=== PATIENT | male | born 1990 | race Caucasian/White ===

== ENCOUNTER 2017-11-01 05:25 | Observation (INO) ==
[2017-11-01] MEDS: *HR* HYDROmorphone (PF) 1 MG/ML SYRINGE IVP PRN ×6 (08:05→22:40)
[2017-11-01] MEDS ORDERED: Ondansetron 4 MG/2 ML VIAL IVP PRN (10:55)
[2017-11-01] MEDS ORDERED: Naloxone 0.4 MG/ML INJ IVP PRN (10:55)
[2017-11-01] MEDS: *HR* OxyCODONE/APAP 5/325 TABLET PO PRN ×3 (10:55→20:46)
--- NOTE | 2017-11-01 11:17 | Internal Med History&Physical ---
Date of Encounter: 11/01/17 Time of Encounter: 11:00 Assessment and Plan (1) Nephrolithiasis Current visit: Yes Status: Acute Patient with left hydronephrosis and stone in proximal ureter. Patient prefers conservative management if possible. - Urology consulted, appreciate assistance - IV fluids - NS at 200/hr - IV dilaudid PRN - NPO at midnight for urological intervention if indicated - KUB pending (2) Anxiety Current visit: Yes Status: Acute Patient states he takes klonopin at night because of difficulty sleeping. Unsure of dose. - Consider adding benzo if patient develops significant anxiety Internal Medicine - H&P: HPI Chief complaint: Left flank pain Admitted From: Intrahospital Transfer Plans for Post Hospital Care: Home History of present illness: Mr. Camejo is a 27 year old male with history of nephrolithiasis who presented to the ED in [place] this morning after he awoke with sudden onset left sided flank pain. He has had kidney stones in the past and recognized that the symptoms were the same. The pain was severe so he presented to the ED for evaluation. In the ED a CT was performed which showed left sided hydronephrosis with a stone in the ureter. He was given pain medications and flomax and transferred to [facility] for urologic evaluation. He states that he has had numerous kidney stones in the past but has never required surgical intervention - his last stone was four years ago. He has never had a urology evaluation. He did vomit on the way to the outside ED but has not been nauseated since. He has not had fever. Past Med Surg Social Fam HX - Past Medical History Psychiatric history: anxiety - Social History Smoking Status: Current every day smoker Alcohol use: occasionally Drug use: none Occupational status: employed - Additional Family History Additional family history: Noncontributory Internal Medicine - H&P: Meds No Known Home Drugs 11/01/17 [History] 3 Allergy/AdvReac Type Severity Reaction Status Date / Time morphine Allergy Intermediate tight chest Verified 11/01/17 08:42 All Systems PM: A 10-system review of systems was performed and is negative for pertinent findings except as documented above in the HPI. - Constitutional Vitals: Temp Pulse Resp BP Pulse Ox 98.0 F 88 16 115/79 96 11/01/17 07:12 11/01/17 07:12 11/01/17 07:12 11/01/17 07:12 11/01/17 07:12 General appearance: Present: A&O X 3, no acute distress - Head Head exam: Present: atraumatic - Eye Eye exam: Present: EOMI, sclera anicteric - ENT ENT exam: Present: mucous membranes moist - Neck Neck exam general surgery: Present: supple - Respiratory Respiratory exam: Present: CTAB - Cardiovascular Cardiovascular exam: Present: RRR. Absent: diastolic murmur, gallop, rubs, systolic murmur - GI/Abdominal GI/Abdominal exam: Present: normal bowel sounds, soft. Absent: distended, tenderness - Extremities Exam Extremities exam: Absent: pedal edema - Back Exam Back exam: Present: CVA tenderness (L) - Neurological Exam Neurological exam: Present: no focal deficits - Skin Skin exam: Absent: rash Internal Med - H&P Results - Labs Labs: Reviewed outside labs. UA with gross blood, no LE or nitrate.
--- NOTE | 2017-11-01 11:17 | Urology - Consult Note ---
Date of Encounter: 11/01/17 Time of Encounter: 11:16 - Assessment and Plan (1) Left ureteral stone Current Visit: Yes Status: Acute Assessment and plan: I spoke with the pateint about options. patient would like to see if he can pass stone. patient scheduled for tomorrow for stone extraction if fails to pass stone. Urology CN:KELLY Consult date: 11/01/17 Reason for consult Urology: Hydronephrosis Requesting physician: Allison Ramos History of present illness: Shorty is a 27-year-old male with a history of severe left-sided flank pain. Patient was found at outside hospital to have a left proximal 5 mm ureteral stone. Patient states that he has passed multiple stones in the past. No nausea or vomiting. No fevers. Medications and Allergies No Known Home Drugs 11/01/17 [History] 3 Allergy/AdvReac Type Severity Reaction Status Date / Time morphine Allergy Intermediate tight chest Verified 11/01/17 08:42 Review of Systems - Constitutional no chills - EENT Nose, mouth and throat: no dizziness - Cardiovascular no chest pain - Respiratory no cough - Gastrointestinal no abdominal pain - Musculoskeletal no back pain Exam Initial Vital Signs Temp Pulse Resp BP Pulse Ox 98.0 F 88 16 115/79 96 11/01/17 07:12 11/01/17 07:12 11/01/17 07:12 11/01/17 07:12 11/01/17 07:12 - General physical appearance Present: well developed - Respiratory Present: normal respiratory effort - Cardiovascular Cardiovascular exam IM: RRR - Abdomen Abdomen: Present: soft - Integumentary Present: no rash - Neurologic Present: normal coordination - Musculoskeletal Present: normal gait Urology Results - Labs All other labs normal. Consult Discharge Plan - Plan Referrals: NONE,PCP [Primary Care Provider] -
[2017-11-01] MEDS: 0.9 % Sodium Chloride 1,000 ML IVC SCH ×2 (11:29→17:11)
[2017-11-02] MEDS: *HR* HYDROmorphone (PF) 1 MG/ML SYRINGE IVP PRN ×5 (01:03→09:20)
[2017-11-02 04:39] LABS: Basophils % 0.3 %; Eosinophils # 0.1 K/mcL (0.0-0.6); Eosinophils % 1.5 %; Hematocrit 46.9 % (37.5-50.1); Hemoglobin 16.1 g/dL (12.9-16.9); Immature Granulocytes % 0.2 % (0-4); Lymphocytes # 3.4 K/mcL (0.6-4.6); Lymphocytes % 36.4 %; Mean Corpuscular HGB Conc 34.3 g/dL (31.6-35.5); Mean Corpuscular Hemoglobin 30.3 pg (28.0-33.3); Mean Corpuscular Volume 88.3 fL (83.0-100.0); Mean Platelet Volume 10.2 fL (9.4-12.4); Monocytes # 0.6 K/mcL (0.0-1.3); Monocytes % 5.9 %; Neutrophils # 5.2 K/mcL (1.6-8.9); Platelet Count 228 K/mcL (140-400); Red Blood Count 5.31 M/mcL (4.19-5.50); Red Cell Distribution Width 12.8 % (11.5-14.5); Segmented Neutrophils % 55.7 %
[2017-11-02 04:54] LABS: BUN/Creatinine Ratio 11 (6-26); Blood Urea Nitrogen 11 mg/dL (8-26); Calcium 9.1 mg/dL (8.6-10.8); Carbon Dioxide 28 mEq/L (19-29); Chloride 105 mEq/L (98-109); Glucose 87 mg/dL (70-99); Osmolality,Calculated 289 (280-300); Potassium 4.1 mEq/L (3.5-4.5); Sodium 140 mEq/L (136-145); eGFR For African Americans > 60 (> 60); eGFR For Non-African Americans > 60 (> 60)
[2017-11-02] MEDS: *HR* OxyCODONE/APAP 5/325 TABLET PO PRN (05:11)
--- NOTE | 2017-11-02 06:41 | Urology Progress Note ---
Date of Encounter: 11/02/17 Time of Encounter: 06:40 - Assessment and Plan (1) Left ureteral stone Current Visit: Yes Status: Acute Assessment and plan: to OR today for left ureteroscopic stone extraction Progress Note Narrative: patient seen. doing ok. still with sig left flank pain. Objective Initial Vital Signs Temp Pulse Resp BP Pulse Ox 98.0 F 88 16 115/79 96 11/01/17 07:12 11/01/17 07:12 11/01/17 07:12 11/01/17 07:12 11/01/17 07:12 - General physical appearance Present: well developed - Abdomen Present: soft - Labs 11/02/17 04:11 11/02/17 04:11 Diabetes panel 11/02/17 Range/Units 04:11 Sodium 140 (136-145) mEq/L Potassium 4.1 (3.5-4.5) mEq/L Chloride 105 (98-109) mEq/L Carbon Dioxide 28 (19-29) mEq/L BUN 11 (8-26) mg/dL Creatinine 1.02 (0.72-1.25) mg/dL Glucose 87 (70-99) mg/dL Calcium 9.1 (8.6-10.8) mg/dL Calcium panel 11/02/17 Range/Units 04:11 Calcium 9.1 (8.6-10.8) mg/dL Pituitary panel 11/02/17 Range/Units 04:11 Sodium 140 (136-145) mEq/L Potassium 4.1 (3.5-4.5) mEq/L Chloride 105 (98-109) mEq/L Carbon Dioxide 28 (19-29) mEq/L BUN 11 (8-26) mg/dL Creatinine 1.02 (0.72-1.25) mg/dL Glucose 87 (70-99) mg/dL Calcium 9.1 (8.6-10.8) mg/dL Adrenal panel 11/02/17 Range/Units 04:11 Sodium 140 (136-145) mEq/L Potassium 4.1 (3.5-4.5) mEq/L Chloride 105 (98-109) mEq/L Carbon Dioxide 28 (19-29) mEq/L BUN 11 (8-26) mg/dL Creatinine 1.02 (0.72-1.25) mg/dL Glucose 87 (70-99) mg/dL Calcium 9.1 (8.6-10.8) mg/dL Consult Discharge Plan - Plan Referrals: NONE,PCP [Primary Care Provider] -
[2017-11-02] MEDS ORDERED: Ketorolac 30 MG/ML VIAL ONE (07:18)
[2017-11-02] MEDS ORDERED: *HR* FentaNYL (PF) 100 MCG/2 ML VIAL ONE (07:18)
[2017-11-02] MEDS ORDERED: Ondansetron 4 MG/2 ML VIAL ONE (07:18)
[2017-11-02] MEDS ORDERED: *HR* Propofol 200 MG/20 ML VIAL IVP ONE (07:18)
[2017-11-02] MEDS ORDERED: Dexamethasone 4 MG/ML VIAL ONE (07:18)
[2017-11-02] MEDS ORDERED: Lidocaine -MPF 2% 2 ML VIAL ONE (07:18)
[2017-11-02] MEDS ORDERED: *HR* Midazolam HCl 2 MG/2 ML VIAL ONE (07:18)
[2017-11-02] MEDS ORDERED: Ringers Solution, Lactated 1,000 ML ONE (07:40)
--- NOTE | 2017-11-02 07:42 | Anesthesia Evaluation PreOp ---
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: Denies Any Significant HX Other Medical History: Other (Anxiety, Insomnia) Alcohol Use: occasionally Drug use: none Medications and Allergies No Known Home Drugs 11/01/17 [History] 3 Allergy/AdvReac Type Severity Reaction Status Date / Time morphine Allergy Intermediate tight chest Verified 11/01/17 08:42 - Meds/Allergy Pre-op Review Allergies Reviewed: Yes (NKA) Beta Blockers on Current Med List: No Anesthesia Results - Labs 11/02/17 04:11 11/02/17 04:11 Anesthesia Exam 128/76 73 14 97.9 NPO (# of Hours): >8 hrs - HEENT Pupil (Motor): Pupils equal Mallampati: II Teeth: Normal Oral Opening: Greater than 3 - 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
[2017-11-02] MEDS ORDERED: Albuterol 2.5 MG/3 ML NEBULIZER IH ONE (07:44)
[2017-11-02] MEDS ORDERED: Albuterol 2.5 MG/3 ML NEBULIZER ONE (07:46)
[2017-11-02] MEDS: Ringers Solution, Lactated 1,000 ML IVC SCH ×2 (07:50→08:54)
[2017-11-02] MEDS ORDERED: *HR* Promethazine 25 MG/ML VIAL IVP PRN (08:23)
--- NOTE | 2017-11-02 08:51 | Operative Note ---
Date of procedure: 11/02/17 Pre-op diagnosis: left kidney stone Post-op diagnosis: same Procedure: Left ureteroscopic laser lithotripsy of stone, left 4.8 x 28 cm ureteral stent placement Anesthesia: GETA Surgeon: Mian Antunez Condition: stable Disposition: PACU Procedure in Detail: Patient was prepped and draped in normal sterile fashion. Timeout procedure performed. I then inserted the semirigid ureteroscope into the patient's bladder. I placed a sensor wire up the left ureteral orifice after being unable to cannulate the UO using the scope. I then dilated the distal ureter using 8/10 dilation sheath but the distal ureter was quite narrow. I then dilated this using the inner sheath of the 11/13 access sheath. At this point I was unable to negotiate the deep semirigid ureteroscope up to the proximal ureter with no obvious stone seen. I then placed a flexible ureteroscope into the left kidney where I encountered the 5 mm stone in the upper pole of the kidney. Kidney was markedly inflamed consistent with a UPJ stone. Because of the narrow ureter I elected to dust the stone. Pieces of the stone were less than 1 mm after lasering the stone. I then slowly withdrew the scope with no stones seen. A 4.8 x 28 cm ureteral stent was placed in the left kidney with good curl seen in left kidney and in the bladder. String was left for easy removal in 2-3 days.
--- NOTE | 2017-11-02 08:52 | Event Note ---
Date of Encounter: 11/02/17 Time of Encounter: 08:51 Patient okay to discharge from urology standpoint. Patient can remove the stent in 2-3 days. Follow up with me in 1-2 weeks.
[2017-11-02] MEDS ORDERED: Hyoscyamine SL 0.125 MG TAB.SUBL SL PRN (09:54)
[2017-11-02] MEDS ORDERED: Naloxone 0.4 MG/ML INJ IVP PRN (09:54)
[2017-11-02] MEDS ORDERED: Ondansetron 4 MG/2 ML VIAL IVP PRN (09:54)
[2017-11-02] MEDS ORDERED: *HR* OxyCODONE/APAP 5/325 TABLET PO PRN (09:54)
[2017-11-02] MEDS ORDERED: *HR* HYDROmorphone (PF) 1 MG/ML SYRINGE IVP PRN (09:54)
--- NOTE | 2017-11-02 11:06 | Discharge Summary ---
Date of Encounter: 11/02/17 Time of Encounter: 11:04 - Discharge Diagnosis (1) Nephrolithiasis Priority: Primary Status: Acute (2) Anxiety Priority: Secondary Status: Chronic - Discharge Medications Prescriptions: OxyCODONE/APAP 5/325 [Percocet 5/325 MG] 1 each PO Q4HR PRN #15 tablet PRN Reason: Pain Hyoscyamine SL [Levsin Sl] 0.125 mg SL TID PRN #20 tab.subl PRN Reason: bladder spasms Home Medications: Hyoscyamine SL [Levsin Sl] 0.125 mg SL TID PRN #20 tab.subl 11/02/17 [Rx] OxyCODONE/APAP 5/325 [Percocet 5/325 MG] 1 each PO Q4HR PRN #15 tablet 11/02/17 [Rx] Allergies/Adverse Reactions: 3 Allergy/AdvReac Type Severity Reaction Status Date / Time morphine Allergy Intermediate tight chest Verified 11/01/17 08:42 Date of admission: 11/01/17 06:51 Primary care physician: PCP NONE Consults: 11/01/17 10:57 Consult to Urology [CONS] Routine Consulting Provider: Urology Sandrine Reason for Consult: nephrolithiasis Call Completed: Yes Discharging clinician: Paula Pelaez Anticipated date of discharge: 11/02/17 - Patient Status Disposition: Home, Self-Care Condition: Fair Functional capacity at discharge: independent ambulation Overall status at discharge: patient is progressing back to baseline - Discharge Instructions Instructions: Kidney Stones (DC) Follow Up With: NONE,PCP [Primary Care Provider] - Additional Instructions: F/up with Urology in 2-3 weeks - Diet and Activity Activity: resume usual activities as tolerated, other (ureteral stent to be removed in 2-3 days) Diet: advance to your usual diet, regular diet Hospital course: Mr. Camejo is a 27 year old male with history of anxiety who was admitted with significant left flank pain and nausea. CT abdomen/pelvis showed left-sided hydro-nephrosis and proximal ureteral stone. Urinalysis showed no evidence of infection. He was started on IV hydration and pain control with when necessary IV Dilaudid. Urology was consulted and patient underwent left ureteroscopic stone extraction and ureteral stent placement. Patient is cleared for discharge by urology. He is advised to remove his stent in 2-3 days. He is otherwise medically stable. - Time Spent with Patient Total time spent providing and/or coordinating discharge services: Greater than 30 minutes (40 min) - Constitutional Vitals: Temp Pulse Resp BP Pulse Ox 98.4 F 97 17 119/76 95 11/02/17 10:06 11/02/17 10:06 11/02/17 10:06 11/02/17 10:06 11/02/17 10:06 General appearance: Present: A&O X 3, answers questions appropriately - Cardiovascular Cardiovascular exam: Present: RRR, +S1, +S2. Absent: diastolic murmur, gallop, rubs, systolic murmur
--- NOTE | 2017-11-02 11:21 | Anesthesia Evaluation Post Op ---
Date of Encounter: 11/02/17 Time of Encounter: 11:20 - Vital Signs Vital Signs: Vital Signs/O2 Sat, Most Current Temp Pulse Resp BP Pulse Ox 98.4 F 97 17 119/76 95 11/02/17 10:06 11/02/17 10:06 11/02/17 10:06 11/02/17 10:06 11/02/17 10:06 - Lungs Lungs: Clear Ascult./Percussion - Airway Airway: Non-obstructed - Cardiovascular Regular Rate - Mental Status Mental Status: Alert & Oriented, Answers Appropriately - Pain Pain Scale: 0 Pain Scale used: Numeric (1 - 10) - Nausea Vomiting Nausea Vomiting: Not Present - Hydration Hydration: NPO
[2017-11-02 11:33] VITALS: BP 123/78
== END 2017-11-02 11:56 | disposition home or self-care (01) ==
LOC: 3ANU
PROVIDERS: ADMIT Internal Medicine; ATTEND Internal Medicine